=== PATIENT | male | born 1970 | race Caucasian/White ===

== ENCOUNTER 2021-04-27 09:50 | Inpatient (IN) | payer BC, OTHER ==
[~2021-04-27] VITALS: Ht 177.8 cm; Wt 143.3 kg
[2021-04-27 11:03] LABS: Basophils # (auto) 0.1 10 ^3/uL (0-0.2); Eosinophils # (auto) 0.1 10 ^3/uL (0-0.8); Hematocrit 48.2 % (41.0-53.0); Mean Corpuscular Volume 72.5 fL (80.0-100.0); White Blood Cell 9.4 10^3/uL (4.4-10.8)
[2021-04-27 11:04] LABS: Basophils % (auto) 0.8 % (0.0-2.0); Eosinophils % (auto) 1.1 % (0.0-7.0); Hemoglobin 15.1 g/dL (13.5-17.5); Lymphocytes # (auto) 1.3 10 ^3/uL (0.4-5.4); Lymphocytes % (auto) 14.3 % (10.0-50.0); Mean Corpuscular Hemoglobin 22.8 pg (28.0-32.0); Mean Corpuscular Hgb Conc. 31.4 g/dL (32.0-36.0); Monocytes # (auto) 0.7 10 ^3/uL (0-1.3); Monocytes % (auto) 7.3 % (0.0-12.0); Neutrophils # (auto) 7.1 10 ^3/uL (1.6-8.6); Neutrophils % (auto) 76.5 % (37.0-80.0); Red Blood Cells 6.66 10^6/uL (4.5-5.90)
[2021-04-27 11:25] LABS: Albumin 3.2 g/dL (3.4-5.0); Calcium 8.4 mg/dL (8.5-10.1)
[2021-04-27 11:31] LABS: BUN/Creatinine Ratio 10.7; Bilirubin, Total 0.7 mg/dL (0.2-1.0); Total Protein 7.1 g/dL (6.4-8.2)
[2021-04-27] MEDS ORDERED: DOCUSATE SOD 100 MG CAP PO PRN (11:45)
[2021-04-27] MEDS ORDERED: ACETAMINOPHEN 325 MG TAB PO PRN (11:45)
[2021-04-27] MEDS ORDERED: NITROGLYCERIN 0.4 MG SL TAB SL PRN (11:45)
[2021-04-27] MEDS ORDERED: TEMAZEPAM 15 MG CAP PO PRN (11:45)
[2021-04-27] MEDS ORDERED: MORPHINE SULFATE INJECTION 2 MG/ML SYRG IV PRN ×2 (11:45)
[2021-04-27] MEDS ORDERED: ONDANSETRON HCL 4 MG/2 ML VIAL IV PRN (11:45)
[2021-04-27] MEDS ORDERED: HEPARIN DRIP/D5W 100UNITS/ML 250 ML IV SCH (11:45)
[2021-04-27] MEDS ORDERED: HYDROcodone-ACET 5/325MG TAB PO PRN (11:45)
[2021-04-27 12:36] LABS: INR 1.07 (0.9-1.15); Partial Thromboplastin Time 29.3 sec (23.6-33.0)
[2021-04-27] MEDS: SODIUM CHLOR 0.9% PF (SALINE LOCK) 10ML VIAL/SYR IV SCH ×2 (13:44→21:27)
[2021-04-27 15:25] VITALS: BP 143/81
[2021-04-27] MEDS: ATORVASTATIN 20 MG TAB PO SCH (18:20)
[2021-04-27] MEDS: SODIUM CHLORIDE 0.9% 1,000 ML IV SCH (18:45)
[2021-04-27 19:18] LABS: INR 1.06 (0.9-1.15); Partial Thromboplastin Time 31.6 sec (23.6-33.0)
[2021-04-27] MEDS ORDERED: HEPARIN SODIUM (PORCINE) 5000 UNITS/ML 1ML VIAL SC ONE (20:00)
[2021-04-27 22:00] VITALS: BP_SYST 115; BP_SYST 150; BP_DIAS 77; BP_DIAS 89
[2021-04-28] VITALS (14 sets, daily range): BP systolic 111–140; BP diastolic 70–102
[2021-04-28 01:50] LABS: INR 1.06 (0.9-1.15); Partial Thromboplastin Time 38.2 sec (23.6-33.0)
[2021-04-28] MEDS: SODIUM CHLOR 0.9% PF (SALINE LOCK) 10ML VIAL/SYR IV SCH ×3 (06:00→21:39)
[2021-04-28] MEDS: SODIUM CHLORIDE 0.9% 1,000 ML IV SCH ×2 (06:02→21:39)
[2021-04-28 06:48] LABS: Basophils # (auto) 0.1 10 ^3/uL (0-0.2); Eosinophils # (auto) 0.2 10 ^3/uL (0-0.8); Lymphocytes # (auto) 1.4 10 ^3/uL (0.4-5.4); Mean Corpuscular Volume 72.8 fL (80.0-100.0); Nucleated Red Blood Cells % 0.2 %
[2021-04-28 06:51] LABS: Basophils % (auto) 0.7 % (0.0-2.0); Eosinophils % (auto) 2.6 % (0.0-7.0); Hematocrit 47.8 % (41.0-53.0); Hemoglobin 15.5 g/dL (13.5-17.5); Lymphocytes % (auto) 15.8 % (10.0-50.0); Mean Corpuscular Hemoglobin 23.7 pg (28.0-32.0); Mean Corpuscular Hgb Conc. 32.5 g/dL (32.0-36.0); Monocytes % (auto) 11.2 % (0.0-12.0); Neutrophils # (auto) 6.2 10 ^3/uL (1.6-8.6); Neutrophils % (auto) 69.7 % (37.0-80.0); Red Blood Cells 6.56 10^6/uL (4.5-5.90); Red Cell Distribution Width 19.2 % (11.8-14.3); White Blood Cell 8.9 10^3/uL (4.4-10.8)
[2021-04-28 06:56] LABS: INR 1.1 (0.9-1.15); Partial Thromboplastin Time 39.3 sec (23.6-33.0)
[2021-04-28 07:10] LABS: Cholesterol 160 mg/dL (< 200); HDL Cholesterol 43 mg/dL (40-59); LDL Cholesterol 104 mg/dL (< 100); Triglycerides 97 mg/dL (< 150)
[2021-04-28] MEDS ORDERED: NITROGLYCERIN 5MG/ML 10ML VIAL IV ONE (08:14)
[2021-04-28] MEDS ORDERED: HEPARIN SODIUM (PORCINE) 5000 UNITS/ML 1ML VIAL ONE (08:14)
[2021-04-28] MEDS ORDERED: VERAPAMIL 2.5MG/ML INJ 2ML VIAL IV ONE (08:14)
[2021-04-28] MEDS ORDERED: ANGIOMAX 250 MG VIAL IV ONE ×2 (08:14→10:05)
[2021-04-28] MEDS ORDERED: SODIUM CHL 0.9% 100 ML ONE (08:15)
[2021-04-28] MEDS ORDERED: MIDAZOLAM HCL 2MG/2ML 2ml VIAL (1mg/ml) ONE (08:15)
[2021-04-28] MEDS ORDERED: LIDOCAINE 2%HCL (LOCAL ANESTH.) INJ 20ML MDV ONE (08:15)
[2021-04-28] MEDS ORDERED: IODIXANOL 320MG/ML 100ML BTL IV ONE (08:15)
[2021-04-28] MEDS ORDERED: fentaNYL CITRATE 100 MCG/2 ML VL ONE (08:15)
[2021-04-28] MEDS ORDERED: IOHEXOL 350 MG/ML 100ML IJ ONE ×4 (09:52→10:47)
[2021-04-28] MEDS ORDERED: ASPirin 81 mg TAB PO SCH (10:00)
[2021-04-28] MEDS ORDERED: SODIUM CHL 0.9% 50 ML ONE (10:05)
[2021-04-28] MEDS ORDERED: EPINEPHrine HCL 1 MG/10 ML SYRG ONE (10:17)
[2021-04-28] MEDS ORDERED: ATROPINE SULF 1 MG/10ml SYR ONE (10:17)
[2021-04-28] MEDS ORDERED: TICAGRELOR 90 MG TAB ONE (10:52)
[2021-04-28] MEDS ORDERED: ASPirin 325 MG TAB ONE (10:53)
[2021-04-28] MEDS: ATORVASTATIN 20 MG TAB PO SCH (17:51)
[2021-04-28] MEDS: TICAGRELOR 90 MG TAB PO SCH (21:34)
[2021-04-28] MEDS ORDERED: TICAGRELOR 90 MG TAB PO SCH (22:00)
[2021-04-29 05:00] VITALS: BP 114/85
[2021-04-29] MEDS: SODIUM CHLOR 0.9% PF (SALINE LOCK) 10ML VIAL/SYR IV SCH (05:38)
[2021-04-29 06:15] LABS: Calcium 8.5 mg/dL (8.5-10.1); Potassium 4.8 mmol/L (3.5-5.1)
[2021-04-29 06:17] LABS: BUN/Creatinine Ratio 9.6
[2021-04-29 09:05] VITALS: BP 124/87
[2021-04-29] MEDS: TICAGRELOR 90 MG TAB PO SCH (09:15)
[2021-04-29] MEDS ORDERED: ASPirin-EC 81 mg tab PO SCH (10:00)
[2021-04-29] MEDS ORDERED: ROSU40TA PO (11:11)
[2021-04-29] MEDS ORDERED: TICA90TA PO (11:11)
[2021-04-29] MEDS ORDERED: ASPI-543 PO (11:11)
[2021-04-29] MEDS ORDERED: LOSA-69 PO (11:11)
[2021-04-29] MEDS: SODIUM CHLORIDE 0.9% 1,000 ML IV SCH (12:21)
== END 2021-04-29 12:48 | disposition home or self-care (01) | DRG 247 ==
LOC: EDBD 09:50 → ER 09:50 → TELE 11:33 → TELE-CENTR 14:30
PROVIDERS: ADMIT Internal Medicine; ATTEND Internal Medicine
PROC: 027034Z Dilation of Coronary Artery, One Artery with Drug-eluting Intraluminal Device, Percutaneous Approach (ICD-10-PCS; principal; 2021-04-28)
PROC: 4A023N7 Measurement of Cardiac Sampling and Pressure, Left Heart, Percutaneous Approach (ICD-10-PCS; 2021-04-28)
PROC: B2111ZZ Fluoroscopy of Multiple Coronary Arteries using Low Osmolar Contrast (ICD-10-PCS; 2021-04-28)
PROC: B2151ZZ Fluoroscopy of Left Heart using Low Osmolar Contrast (ICD-10-PCS; 2021-04-28)
DX: I21.4 Non-ST elevation (NSTEMI) myocardial infarction (principal); Z68.41 Body mass index [BMI] 40.0-44.9, adult; E78.5 Hyperlipidemia, unspecified; I10 Essential (primary) hypertension; E66.9 Obesity, unspecified; I25.10 Atherosclerotic heart disease of native coronary artery without angina pectoris; Z82.49 Family history of ischemic heart disease and other diseases of the circulatory system; Z87.891 Personal history of nicotine dependence; Z20.822 Contact with and (suspected) exposure to COVID-19
CPT/HCPCS: 36415; 71045; 80048; 80053; 80061; 82306; 83036; 83880; 84443; 84484; 85025; 85610; 85730; 86850; 86900; 86901; 87426; 92928; 93005; 93306; 93458; 96365; 96372; 99152; 99153; 99291; C1874; G0378; J2250; J3490; Q9967

== ENCOUNTER 2021-07-14 11:38 | Emergency (ER) | payer BC ==
[~2021-07-14] VITALS: Ht 177.8 cm; Wt 136.1 kg
[~2021-07-14 11:38] MED LIST: ASPI-543 PO; LOSA-69 PO; ROSU40TA PO; TICA90TA PO
[2021-07-14 12:34] LABS: Basophils # (auto) 0.1 10 ^3/uL (0-0.2); Eosinophils # (auto) 0.1 10 ^3/uL (0-0.8); Hematocrit 49.9 % (41.0-53.0); Hemoglobin 16.9 g/dL (13.5-17.5); Mean Corpuscular Hgb Conc. 33.8 g/dL (32.0-36.0); White Blood Cell 9.9 10^3/uL (4.4-10.8)
[2021-07-14 12:36] LABS: Basophils % (auto) 0.7 % (0.0-2.0); Eosinophils % (auto) 1.4 % (0.0-7.0); Lymphocytes # (auto) 1.8 10 ^3/uL (0.4-5.4); Lymphocytes % (auto) 18.8 % (10.0-50.0); Mean Corpuscular Hemoglobin 27.7 pg (28.0-32.0); Monocytes # (auto) 0.8 10 ^3/uL (0-1.3); Monocytes % (auto) 8.6 % (0.0-12.0); Neutrophils % (auto) 70.5 % (37.0-80.0); Nucleated Red Blood Cells % 0.1 %; Red Blood Cells 6.08 10^6/uL (4.5-5.90); Red Cell Distribution Width 23.9 % (11.8-14.3)
[2021-07-14 12:39] LABS: Urine Bacteria NONE SEEN /hpf (None Seen); Urine Blood Negative /uL (Negative); Urine Specific Gravity 1.008 (1.001-1.035); Urine WBC <1 /hpf (0 - 3)
[2021-07-14 12:49] LABS: BUN/Creatinine Ratio 14.9; Calcium 9.6 mg/dL (8.5-10.1); Magnesium 2.4 mg/dL (1.6-2.6); Potassium 4.2 mmol/L (3.5-5.1)
[2021-07-14 12:51] LABS: Bilirubin, Total 0.6 mg/dL (0.2-1.0); Total Protein 7.9 g/dL (6.4-8.2)
[2021-07-14 17:00] VITALS: BP 127/82
== END 2021-07-14 17:03 | disposition home or self-care (01) ==
LOC: ER 11:38
DX: R07.89 Other chest pain (principal); I25.10 Atherosclerotic heart disease of native coronary artery without angina pectoris; I10 Essential (primary) hypertension; E66.9 Obesity, unspecified; I25.2 Old myocardial infarction; E78.5 Hyperlipidemia, unspecified; Z98.61 Coronary angioplasty status
CPT/HCPCS: 36415; 71045; 80053; 81001; 83735; 84484; 85025; 93005

== ENCOUNTER 2025-06-12 08:46 | Inpatient (IN) | payer BC ==
[2025-06-10 11:28] LABS: Hematocrit 47.6 % (41.0-53.0); Hemoglobin 16.4 g/dL (13.5-17.5); Mean Corpuscular Hemoglobin 31.0 pg (28.0-32.0); Mean Corpuscular Volume 90.0 fL (80.0-100.0); Nucleated Red Blood Cells % 0.2 %
[2025-06-10 11:31] LABS: Urine Protein, UAD Negative (Negative)
[2025-06-10 11:43] LABS: INR 1.03 (0.9-1.15); Partial Thromboplastin Time 28.1 SEC (24.5-34.5); Prothrombin Time 10.9 sec (9.3-11.8)
[2025-06-10 12:07] LABS: Alanine Aminotransferase 19 U/L (7-40); Albumin 4.5 g/dL (3.2-4.8); Alkaline Phosphatase 62 U/L (46-116); Anion Gap 8 (5-15); BUN/Creatinine Ratio 13.0 (10.0-20.0); Bilirubin, Total 0.6 mg/dL (0.2-1.0); Blood Urea Nitrogen 12 mg/dL (9-23); Calcium 9.6 mg/dL (8.7-10.4); Carbon Dioxide 27 mmol/L (20-31); Chloride 105 mmol/L (98-107); Glucose 98 mg/dL (74-106); Potassium 4.8 mmol/L (3.5-5.1); Sodium 140 mmol/L (136-145); Total Protein 7.0 g/dL (5.7-8.2)
[~2025-06-12] VITALS: Ht 177.8 cm; Wt 129.0 kg
[~2025-06-12 08:46] MED LIST changes: -LOSA-69 PO; +LOSA100T25 PO; -ROSU40TA PO; +ROSU40TA81 PO; -TICA90TA PO
[2025-06-12] MEDS: ceFAZolin 2 GM/D5W50ml 50 ML IV ONE (08:55)
[2025-06-12] MEDS: TRANEXAMIC ACID 20 ML ONE (10:32)
--- NOTE | 2025-06-12 11:09 | DVHHP2 ---
Admitting Diagnosis: cervical spinal stenosis History of Present Illness Home Meds Active Scripts Rosuvastatin Calcium (Crestor) 40 Mg Tab, 1 TAB PO HS, #30 TAB 5 Refills Prov:NAKUL JAEGER MD 04/29/21 Aspirin (Aspir-Low) 81 Mg Tab, 81 MG PO DAILY for 30 Days, #30 TAB Prov:NAKUL JAEGER MD 04/29/21 Reported Medications Losartan Potassium & Hydrochlo (Hyzaar) 1 Tab Tab, 1 TAB PO DAILY, TAB 06/10/25 Neck Pain Radiation: Upper extremity Method of Injury/Prior Factors: Other Modifying Factors for Neck Klaus: None Associated Symptoms of Neck Pa: Muscle spasms, Numbness in upper extremi, Numbness in fingers, Tingling in upper extremi, Tingling in fingers, Sensory loss, Motor loss Past Medical History Patient Family History: Cardiac disorder in father G8 FATHER Cardiac disorder in mother G8 MOTHER Review of Systems Constitutional: No symptom reported Ears, Nose, & Throat: No symptom reported Eyes: No symptom reported Pulmonary/Respiratory: No symptom reported Cardiovascular: No symptom reported Gastrointestinal: No symptom reported Genitourinary: No symptom reported Musculoskeletal: Neck pain Skin: No symptom reported Psychiatric: No symptom reported Endocrine: No symptom reported Hemotologic/Lymphatic: No symptom reported H&P Exam Vital Signs Vital Signs Date Time Temp Pulse Resp B/P (MAP) Pulse Ox O2 Delivery O2 Flow Rate FiO2 06/12/25 09:02 97.6 57 20 118/68 (85) 96 97.6 General Appeara: Well developed, Well nourished, Normal Appearance Head Exam: Normal inspection Neck Exam: Normal inspection, Non-tender, Normal alignment Eye Exam: bilateral eye Normal inspection, bilateral eye PERRL, bilateral eye EOMI Ear Exam: bilateral ear Auricle normal, bilateral ear Canal normal, bilateral ear TM normal Nasal Exam: Normal inspection Mouth: Normal Inspection Pulmonary/Respiratory: Normal inspection, Normal breath sounds, Chest non- tender, Lungs clear Cardiovascular/Chest: Normal inspection, Regular rate, Normal Rhythm Abdominal Exam: Normal bowel sounds, Soft, No tenderness, No hepatospenomegaly, No masses Rectal Exam: Deferred Back Exam: Left CVA tenderness, Decreased range of motion, Muscle spasm Pelvic Exam: Not done Male Genital Exam: Not done Shoulder Exam: Soft tissue tenderness Elbow/Forearm Exam: Soft tissue tenderness Wrist Exam: Soft tissue tenderness Hand Exam: Soft tissue tenderness Hip exam: Normal inspection, Non-tender, Normal range of motion Legs: bilateral leg non-tender, bilateral leg normal inspection, bilateral leg normal range of motion, bilateral leg no evidence of injury Knees: bilateral knee non-tender, bilateral knee normal inspection, bilateral knee normal range of motion, bilateral knee no evidence of injury Ankle Exam: bilateral ankle Normal inspection, bilateral ankle Non-tender, bilateral ankle Normal range of motion, bilateral ankle No evidence of injury Foot: bilateral foot non-tender, bilateral foot normal inspection, bilateral foot normal range of motion, bilateral foot no evidence of injury Tendon/ Neuro: Motor deficit, Sensory deficit [employer] Exam: Normal hearing, Normal speech, PERRL Motor/Sensory: Weak motor strength RUE, Weak motor strength LUE Deep Tendon Ref: All intact Neuro/Mental St: Alert, Oriented Appearance: Appropriate appearance, Appropriate insight Eye contact/ Speech: Cooperative, Good eye contact, Normal speech Coordination/Gait: Abnormal gait Lymphatic: Normal inspection Labs/Xrays Labs Test 06/10/25 11:10 Range/Units White Blood Count 6.5 4.4-10.8 10^3/uL Red Blood Count 5.29 4.5-5.90 10^6/uL Hemoglobin 16.4 13.5-17.5 g/dL Hematocrit 47.6 41.0-53.0 % Mean Corpuscular Volume 90.0 80.0-100.0 fL Mean Corpuscular Hemoglobin 31.0 28.0-32.0 pg Mean Corpuscular Hemoglobin Concent 34.4 32.0-36.0 g/dL Red Cell Distribution Width 13.1 11.8-14.3 % Platelet Count 184 140-450 10^3/uL Mean Platelet Volume 8.9 6.9-10.8 fL Neutrophils (%) (Auto) 62.7 37.0-80.0 % Lymphocytes (%) (Auto) 24.3 10.0-50.0 % Monocytes (%) (Auto) 7.7 0.0-12.0 % Eosinophils (%) (Auto) 3.9 0.0-7.0 % Basophils (%) (Auto) 1.4 0.0-2.0 % Neutrophils # (Auto) 4.1 1.6-8.6 10 ^3/uL Lymphocytes # (Auto) 1.6 0.4-5.4 10 ^3/uL Monocytes # (Auto) 0.5 0-1.3 10 ^3/uL Eosinophils # (Auto) 0.2 0-0.8 10 ^3/uL Basophils # (Auto) 0.1 0-0.2 10 ^3/uL Nucleated Red Blood Cells 0.2 % Prothrombin Time 10.9 9.3-11.8 sec Prothrombin Time INR 1.03 0.9-1.15 Activated Partial Thromboplast Time 28.1 24.5-34.5 SEC Urine Color Colorless Yellow Urine Clarity Clear Clear Urine pH 5.0 5.0-9.0 Urine Specific [place] 1.009 1.001-1.035 Urine Protein Negative Negative Urine Ketones Negative Negative Urine Blood Negative Negative /uL Urine Nitrite Negative Negative Urine Bilirubin Negative Negative Urine Urobilinogen Normal Negative mg/dL Urine Leukocyte Esterase Negative Negative /uL Urine RBC <1 0 - 3 /hpf Urine Microscopic WBC 1 0-3 /HPF Urine Squamous Epithelial Cells None seen <5 /hpf Urine Bacteria None seen None Seen /hpf Urine Glucose Normal Normal mg/dL Sodium Level 140 136-145 mmol/L Potassium Level 4.8 3.5-5.1 mmol/L Chloride Level 105 98-107 mmol/L Carbon Dioxide Level 27 20-31 mmol/L Anion Gap 8 5-15 Blood Urea Nitrogen 12 9-23 mg/dL Creatinine 0.92 0.700-1.30 mg/dL Glomerular Filtration Rate Calc 98 >90 mL/min BUN/Creatinine Ratio 13.0 10.0-20.0 Serum Glucose 98 74-106 mg/dL Calcium Level 9.6 8.7-10.4 mg/dL Total Bilirubin 0.6 0.2-1.0 mg/dL Aspartate Amino Transferase (AST) 17 13-40 U/L Alanine Aminotransferase (ALT) 19 7-40 U/L Alkaline Phosphatase 62 46-116 U/L Total Protein 7.0 5.7-8.2 g/dL Albumin 4.5 3.2-4.8 g/dL Assessment/Plan Primary Diagnosis cervical spinal stenosis Plan admit for elective cervical spine surgery Plan discussed with: Patient SETH JORGENSEN MD Jun 12, 2025 11:09
[2025-06-12] MEDS ORDERED: hydrALAZINE HCL 20 MG/ML VL IV PRN (12:15)
[2025-06-12] MEDS ORDERED: METOCLOPRAMIDE HCL 5MG/ml INJ 2ml VIAL IV PRN (12:15)
[2025-06-12] MEDS ORDERED: HYDROmorphone HCL 2 MG/ML VL/or syr IV PRN ×2 (12:15→16:00)
[2025-06-12] MEDS ORDERED: ONDANSETRON HCL 4 MG/2 ML VIAL IV PRN ×3 (12:15→16:00)
[2025-06-12] MEDS: ACETAMINOPHEN IV 1000 MG/100ML (10MG/ML) IV ONE (12:15)
[2025-06-12] MEDS ORDERED: fentaNYL CITRATE 100 MCG/2 ML VL ONE (12:19)
[2025-06-12] MEDS ORDERED: ONDANSETRON HCL 4 MG/2 ML VIAL ONE (12:20)
[2025-06-12] MEDS ORDERED: LIDOCAINE 1% INJ PF 5ML AMP ONE (12:20)
[2025-06-12] MEDS ORDERED: MIDAZOLAM HCL 2MG/2ML 2ml VIAL (1mg/ml) ONE (12:20)
[2025-06-12] MEDS ORDERED: fentaNYL CITRATE 5 ML ONE ×2 (12:20→14:31)
[2025-06-12] MEDS ORDERED: METOCLOPRAMIDE HCL 5MG/ml INJ 2ml VIAL ONE (12:20)
[2025-06-12] MEDS ORDERED: ROCURONIUM 10MG/ML 10ML VIAL IV ONE (12:21)
[2025-06-12] MEDS ORDERED: PROPOFOL 10 MG/ML 20 ML IV ONE ×2 (12:21→12:23)
[2025-06-12] MEDS: LIDOCAINE 4MG/ML IV SOLN 500 ML IV ONE (12:25)
[2025-06-12] MEDS ORDERED: MORPHINE SULFATE INJ 2 MG/ml SYRG IV PRN ×2 (12:45)
[2025-06-12] MEDS: D5W/SOD CHLO 0.9% 1,000 ML IV SCH (12:45)
[2025-06-12] MEDS ORDERED: NITROGLYCERIN 0.4 MG SL TAB SL PRN (12:45)
[2025-06-12] MEDS ORDERED: SODIUM CHLORIDE LOCK 10 ML ONE (13:02)
[2025-06-12] MEDS ORDERED: hydrALAZINE HCL 20 MG/ML VL ONE (13:42)
[2025-06-12] MEDS ORDERED: MORPHINE SULFATE 4 MG/ML SYR/VIAL IV PRN (13:45)
[2025-06-12] MEDS ORDERED: HYDROmorphone HCL 2 MG/ML VL/or syr ONE (13:59)
[2025-06-12] MEDS: CYCLOBENZAPRINE HCL 10 MG TAB PO SCH (14:00)
[2025-06-12] MEDS ORDERED: ceFAZolin 1GM/50ML 50 ML IV SCH (14:00)
[2025-06-12] MEDS ORDERED: SUGAMMADEX 200mg/2ml Vial (100MG/ML) IV ONE (15:13)
[2025-06-12 15:46] VITALS: PULSE 97; RESP 20; O2SAT 96
--- NOTE | 2025-06-12 15:47 | DVHOP2 ---
Operative Report - 2 Report Details Date: 06/12/25 Preop Diagnosis: cervical 5/6 and 6/7 spinal stenosis causing incapacitating neck pain and radiculopathy Postop Diagnosis: same as pre op Surgeon: Eloy Naylor MD Section Leader: Zee Duran NP Anesthesiologist: Beverley Stewart MD Anesthesia: General Consent: The patient was informed of the risks and benefits of the procedure. These include but are not limited to complications of anesthesia, postoperative infection, incomplete relief of symptoms, recurrence of symptoms, damage to blood vessels, nerves and tendons, deep venous thrombosis, pulmonary embolism and possible need for repeat surgery in the future. Name of Procedure Performed see detailed note Procedure Details Procedure Details: Pre Op Diagnosis: Cervical Degenerative Disk Disease and Spinal Stenosis Causing incapacitating neck pain, radiculopathy and progressive neurologic deficit Post Op Diagnosis: Cervical Degenerative Disk Disease and Spinal Stenosis Causing incapacitating neck pain, radiculopathy and progressive neurologic deficit Procedure: Cervical 5 to 6 anterior cervical discectomy with Cervical 5-6 foraminotomies and facetectomies to decompression the spinal canal and Cervical 6 nerve roots Cervical 6 to 7 anterior cervical discectomy with Cervical 6-7 foraminotomies and facetectomies to decompression the spinal canal and Cervical 7 nerve roots Cervical 5/6 artificial disk arthroplasty with MOBI C device Cervical 6/7 artificial disk arthroplasty with MOBI C device Microscope for micro dissection Surgeon: Eloy Naylor MD Anesthesia: General Assist: Zee Druan NP Fluids and EBL: see anesthesia note Procedure Note: The patient was seen in the Pre-anesthesia Care Unit and the site of the incision was initialed by me with a felt tipped marker. All questions by the patient were answered to the satisfaction of the patient and the chart was reviewed. The patient was taken to the operating room and placed supine on the [facility] Flat top table. General anesthesia was induced. Neuromonitoring leads were placed. A rolled towel was placed between the shoulder blades to hyperextend out the chest which will allow better exposure of the cervical spine. Halter traction to 10 pounds was placed. The arms were padded and adducted to the patient's side making sure all pulses in the hands were present. Tape traction was undertaken on the shoulders to give us better radiographic exposure of the distal cervical spine. A gel-pad was placed under the occiput and 5 degrees of extension was placed on the neck without adverse effects to the patient. The anterior neck was prepped and draped. Pre-operative antibiotics were given 30 minutes prior to the start of the procedure. A c-arm fluoroscope was used to stella out the incision site. At this time, a time out was taken per usual protocol. Next an incision was made through the skin with a 15 blade scal pel through the subcutaneous tissue down to the platysma. Self-retainers were placed. The platysma was incised along the longitudinal border with a Metzenbaum scissors. Blunt dissection was made through the deep cervical and pre-tracheal fascia taking care to protect the carotid sheath laterally and the Trachea/esophagus medially. The dissection was carried down to the pre-vert ebral fascia. Any crossing vessels were ligated using a vascular clip or coagulated with a bovie. An esophageal retractor was next used to retract the trachea/esophagus and a bent [address] through the anterior annulus of the cervical disk and a lateral C-arm fluoroscopic image was taken to confirm that we were at the correct level. Next, bovie electrocautery was used to expose the bones cervical 4 and 5and bipolar electrocautery was used to lift up the Longus colli and capitus muscles. Black-Belt Self Retainers were used to retract the Longus colli and capitus muscles bilaterally as well as the trachea/esophagus to the right and the carotid sheath to the left. Smooth thin Black-Belt retractors were placed proximally and distally and a needle was placed again in the anterior annulus of the disk and an image taken to confirm the correct level. At this point, the microscope was wheeled in and an 11 blade scalpel incised the anterior annulus of the cervical cervical 5/6 and 6/7 disks. Next, straight and curved curettes removed the remainder of the disks all the way down to the posterior longitudinal ligament. Carefully, a Kerison number one rongeur incised the posterior longitudinal ligament at the lateral end of the cervical 5/6 and 6/7 disk and using a micro, blunt tip nerve hook to separate the posterior longitudinal ligament from the dura, alternating 1 mm and 2 mm Kerison rongeurs removed the posterior longitudinal ligament. Next, Kerison 1mm and 2 mm rongeurs were alternated to get under the uncinate processes and undercut them to perform foraminotomies and factectomies at cervical 5/6 and 6/7levels to decompress the central canal and cervical 6 and 7 nerve roots. Next the microscope was wheeled away and the c-arm fluoroscope was wheeled into the field and a lateral image was obtained. Increasing size graft trials were used starting at a 5 mm thick size until the proper tension in the disk space and height church obtained. We then placed a MOBI C deviceat cervical 5/6 and then repeated the Process at C6/7. Satisfactory placement was confirmed in the AP and lateral views using a C-arm fluoroscope. Both prostheses were 17mm wide/ 17mm deep / 5mm thick Copious irrigation of the wound with sterile saline and all bleeding was controlled before closure initiated. At this point, a 10 Thai [address] Drain was place deep to the Platysma muscle and the Platysma was approximated with one interrupted 0-Vicryl suture. The subcutaneous tissue was closed with interrupted 2-0 vicryl sutures and the skin was closed with leonardo. Sterile dressings were placed and a cervical collar placed, the patient extubated, transferred to the stretcher and taken to the Recovery Room in unremarkable condition. CPT CODES: [id number] Condition Stable Disposition Still a Patient ELOY NAYLOR MD Jun 12, 2025 15:47
[2025-06-12 17:05] VITALS: BP_SYST 108; BP_SYST 110; BP_DIAS 61; BP_DIAS 69; PULSE 61; PULSE 62; RESP 16; RESP 18; TEMP 97.9; TEMP 98.4; O2SAT 94; O2SAT 95
[2025-06-12 20:00] VITALS: PULSE 71; PULSE 72; RESP 18; O2SAT 96
[2025-06-12] MEDS: HYDROcodone-ACET 10/325MG TAB PO PRN (20:18)
[2025-06-12] MEDS: ceFAZolin 1GM/50ML 50 ML IV SCH (20:18)
[2025-06-12 21:00] VITALS: BP 112/67; PULSE 64; RESP 17; TEMP 97.7; O2SAT 99
[2025-06-12] MEDS: DOCUSATE SOD 100 MG CAP PO SCH (22:53)
[2025-06-13 01:00] VITALS: BP 114/64; PULSE 62; RESP 18; TEMP 97.7; O2SAT 99
[2025-06-13 05:00] VITALS: BP 106/57; PULSE 69; RESP 19; TEMP 98.4; O2SAT 99
[2025-06-13] MEDS: ceFAZolin 1GM/50ML 50 ML IV SCH (05:24)
[2025-06-13 08:00] VITALS: PULSE 70; RESP 20; O2SAT 97
[2025-06-13 08:36] VITALS: BP 123/80; PULSE 70; RESP 20; TEMP 98.2; O2SAT 97
--- NOTE | 2025-06-13 10:25 | DVH ---
C-ARM FLUOROSCOPY: PROCEDURE: ACDF FLUOROSCOPY TIME: 95.5 sec Air Kerma: 63 mgy FINDINGS: Spot intraoperative C arm radiographs demonstrating ACDF. IMPRESSION: Please refer to surgical report for detailed findings.
--- NOTE | 2025-06-13 10:25 | DVH ---
C-ARM FLUOROSCOPY: PROCEDURE: ACDF FLUOROSCOPY TIME: 95.5 sec Air Kerma: 63 mgy FINDINGS: Spot intraoperative C arm radiographs demonstrating ACDF. IMPRESSION: Please refer to surgical report for detailed findings.
--- NOTE | 2025-06-13 10:43 | DVHPN2 ---
Progress Note - Surgical Date Seen: Jun 13, 2025 Post op day Post op day: 1 Subjective Patient reports: No new complaints, Feels better Review of Systems: NEURO:Abnormal (severe neck pain and arm pain) Objective Vital signs Vital Sign Date Time Temp Pulse Resp B/P (MAP) Pulse Ox O2 Delivery O2 Flow Rate FiO2 06/13/25 08:36 98.2 70 20 123/80 (94) 97 98.2 06/12/25 20:00 Room Air* 0 21 Total Intake and Output 06/12/25 06/12/25 06/13/25 15:00 23:00 07:00 Intake Total 200 ml 800 ml Output Total 15 ml 1400 ml Balance 200 ml -15 ml -600 ml Medications Current Medications Medications Dose Ordered Sig/Suraj Route Start Time Stop Time Status Last Admin Dose Admin Dextrose/Sodium Chloride 1,000 ml @ 100 mls/hr Q10H IV 06/12/25 12:45 Ondansetron HCl 4 mg Q4HP PRN IV 06/12/25 12:45 Acetaminophen 650 mg Q6HP PRN PO 06/12/25 12:45 Acetaminophen/ Hydrocodone Bitart 1 tab Q6HP PRN PO 06/12/25 12:45 06/13/25 08:45 1 TAB Morphine Sulfate 1 mg Q4HP PRN IV 06/12/25 12:45 UNV Cyclobenzaprine HCl 10 mg TID PO 06/12/25 14:00 06/13/25 05:25 10 MG Docusate Sodium 100 mg BID PO 06/12/25 22:00 06/12/25 22:53 100 MG Nitroglycerin 0.4 mg Q5MINP PRN SL 06/12/25 12:45 Morphine Sulfate 2 mg Q30M PRN IV 06/12/25 12:45 Morphine Sulfate 1 mg Q4HPRN PRN IV 06/12/25 13:45 Cefazolin Sodium 50 ml @ 100 mls/hr Q8H IV 06/13/25 04:30 06/13/25 05:24 100 MLS/HR Laboratory Laboratory Tests 06/10/25 11:10 Test 06/10/25 11:10 Range/Units Serum Glucose 98 74-106 mg/dL Examination: GENERAL:Normal, HEENT:Normal, NECK:Normal (good ROM), LUNGS:Normal, CVS:Normal, ABDOMEN:Normal, MSK:Normal (ambulating in hallway), SKIN:Normal (left anterior neck wound well apprximated with staple), NEURO:Normal (verbalized great improvment), :Normal Problem List/Assessment/Plan Problems: (1) Acute post-operative pain (2) Muscle spasms of neck Assessment and Plan minimal drain output-drain DC, pt tolerated well up ambulating out in denny verbalized vast improvement in neck and arm pain tolerating meals, pain well controlled patient requesting discharge patient has picked up medications patient has follow up appointment scheduled You may shower and let the water run over your neck wound however you must pat it dry with sterile 4x4s gauze. Please do not use regular household towels. Keep your incision covered when you are out of your house or when you are wearing clothing that rub on your incision. He will also do not want to have a seatbelt rubbing on your incision. If you are at home and you have clothing that does not contact your incision you may leave it open to air. You may have some residual drainage from the drain site for the next 2-3 days which is normal it should be a very light pink or ramila color fluid. If it changes or becomes bright red please call 911. Call with questions Marbin Duran [facility] Orthopaedic Spine Surgery nurse practitioner For Dr Jessica Naylor Office Patient was examined, chart reviewed, labs evaluated, and diagnostic studies and findings analyzed. Case was discussed with Dr. Eloy Naylor who formulated the plan of care. This medical document was created using an electronic medical record system with [employer] dictation system. Although this document has been carefully reviewed, there might still be some phonetic and typographical errors. These areas are purely typographical due to imperfections of the software programs, and do not reflect any compromise in the patient's medical care. Plan discussed with Plan discussed with: Patient, Other Visit Coding Surgery Date of Service if different f: Jun 13, 2025 Billing Provider: VÍCTOR DURAN NP Surgery Visit Codes: NOT BILLABLE VÍCTOR DURAN NP Jun 13, 2025 10:43
[2025-06-13 13:00] VITALS: BP 148/81; PULSE 78; RESP 18; TEMP 98.2; O2SAT 95
[2025-06-13] MEDS: ACETAMINOPHEN 325 MG TAB PO PRN (13:21)
[2025-06-13] MEDS ORDERED: MAGNESIUM SULF 50% 40 MEQ/10 ML VL IV ONE (15:00)
--- NOTE | 2025-06-13 16:18 | DVHDS2 ---
Discharge Summary Date of Admission Jun 12, 2025 at 12:43 Date of Discharge: Jun 13, 2025 Admitting Diagnosis cervical stenosis with neurogenic claudication Wounds: left anterior neck wound well approximated with staple Labs/Diagnostic Data: Laboratory Results Test 06/10/25 11:10 White Blood Count 6.5 10^3/uL (4.4-10.8) Red Blood Count 5.29 10^6/uL (4.5-5.90) Hemoglobin 16.4 g/dL (13.5-17.5) Hematocrit 47.6 % (41.0-53.0) Mean Corpuscular Volume 90.0 fL (80.0-100.0) Mean Corpuscular Hemoglobin 31.0 pg (28.0-32.0) Mean Corpuscular Hemoglobin Concent 34.4 g/dL (32.0-36.0) Red Cell Distribution Width 13.1 % (11.8-14.3) Platelet Count 184 10^3/uL (140-450) Mean Platelet Volume 8.9 fL (6.9-10.8) Neutrophils (%) (Auto) 62.7 % (37.0-80.0) Lymphocytes (%) (Auto) 24.3 % (10.0-50.0) Monocytes (%) (Auto) 7.7 % (0.0-12.0) Eosinophils (%) (Auto) 3.9 % (0.0-7.0) Basophils (%) (Auto) 1.4 % (0.0-2.0) Neutrophils # (Auto) 4.1 10 ^3/uL (1.6-8.6) Lymphocytes # (Auto) 1.6 10 ^3/uL (0.4-5.4) Monocytes # (Auto) 0.5 10 ^3/uL (0-1.3) Eosinophils # (Auto) 0.2 10 ^3/uL (0-0.8) Basophils # (Auto) 0.1 10 ^3/uL (0-0.2) Nucleated Red Blood Cells 0.2 % Prothrombin Time 10.9 sec (9.3-11.8) Prothrombin Time INR 1.03 (0.9-1.15) Activated Partial Thromboplast Time 28.1 SEC (24.5-34.5) Urine Color Colorless (Yellow) Urine Clarity Clear (Clear) Urine pH 5.0 (5.0-9.0) Urine Specific [place] 1.009 (1.001-1.035) Urine Protein Negative (Negative) Urine Ketones Negative (Negative) Urine Blood Negative /uL (Negative) Urine Nitrite Negative (Negative) Urine Bilirubin Negative (Negative) Urine Urobilinogen Normal mg/dL (Negative) Urine Leukocyte Esterase Negative /uL (Negative) Urine RBC <1 /hpf (0 - 3) Urine Microscopic WBC 1 /HPF (0-3) Urine Squamous Epithelial Cells None seen /hpf (<5) Urine Bacteria None seen /hpf (None Seen) Urine Glucose Normal mg/dL (Normal) Sodium Level 140 mmol/L (136-145) Potassium Level 4.8 mmol/L (3.5-5.1) Chloride Level 105 mmol/L (98-107) Carbon Dioxide Level 27 mmol/L (20-31) Anion Gap 8 (5-15) Blood Urea Nitrogen 12 mg/dL (9-23) Creatinine 0.92 mg/dL (0.700-1.30) Glomerular Filtration Rate Calc 98 mL/min (>90) BUN/Creatinine Ratio 13.0 (10.0-20.0) Serum Glucose 98 mg/dL (74-106) Calcium Level 9.6 mg/dL (8.7-10.4) Total Bilirubin 0.6 mg/dL (0.2-1.0) Aspartate Amino Transferase (AST) 17 U/L (13-40) Alanine Aminotransferase (ALT) 19 U/L (7-40) Alkaline Phosphatase 62 U/L (46-116) Total Protein 7.0 g/dL (5.7-8.2) Albumin 4.5 g/dL (3.2-4.8) Other Laboratory Tests 06/10/25 11:10 Brief Hx & Hospital Course: The patient arrived for a elective spine surgery with Dr. NAYLOR. Surgery went as planned with no complications. After a short stay in the PACU patient was admitted to the hospital for postoperative care and pain management over the course of 1 postoperative days the patient was able to tolerate a diet, ambulate independently, the pain has been managed with oral analgesics. The surgical site is well-approximated with sutures, some residual drainage continues from drain insertion sites after removal, however it is manageable with daily wound care and dressing changes. Some improvement to preoperative symptoms of extremities, strength and motion. There is new post operative pain that is localized to the surgical site. The patient will follow-up with Dr. Naylor for wound check and suture check or staple removal. Operations or Procedures cervical disc replacement x2 Condition at Discharge: Good Final Diagnosis/Problems List acute post operative pain accompanied by muscle spasms Discharge Disposition: Home Discharge Instruct/Medications Diet: Regular, See Comment Diet comment: you may resume our regular diet Activity: No Restrictions, As Tolerated Activity comment: continue to move your head and neck slowly until it becomes more comfortable. limit lifting Follow Up/Referral: Call for a appointment, or to change or confirm your appoinment [address] [place] [address], [address], [place] [address] Medications: patient has picked up medications already Scheduled Aspirin (Aspir-Low), 81 MG PO DAILY Losartan Potassium & Hydrochlo (Hyzaar), 1 TAB PO DAILY, (Reported) Rosuvastatin Calcium (Crestor), 1 TAB PO HS 15 Discharge Statement: "Patient was advised to return to the ER or call 911 if any headaches, dizziness, shortness of breath, chest pain, abdominal pain, bleeding, fevers, or worsening of medical condition. Patient was counseled about treatment plan, medications, possible side effects, patientverbalized understanding. All questions were answered to the best of my ability. This discharge took greater then 30 minutes in planning, reviewing documentation, counseling the patient, and discussing with other team members." ASSESSMENT ASSESSMENT Assessment acute post operative pain accompanied by muscle spasms VÍCTOR CHU NP Jun 13, 2025 16:18
[2025-06-13 17:00] VITALS: BP 139/88; PULSE 83; RESP 18; TEMP 98; O2SAT 95
== END 2025-06-13 17:45 | disposition home or self-care (01) | DRG 518 ==
LOC: SUR 08:46 → OVERFLOW 12:43 → TELE-WESTW 17:29
PROVIDERS: ADMIT Internal Medicine; ATTEND Internal Medicine
PROC: 01N10ZZ Release Cervical Nerve, Open Approach (ICD-10-PCS; 2025-06-12)
PROC: 00NW0ZZ Release Cervical Spinal Cord, Open Approach (ICD-10-PCS; 2025-06-12)
PROC: 0RR30JZ Replacement of Cervical Vertebral Disc with Synthetic Substitute, Open Approach (ICD-10-PCS; principal; 2025-06-12 12:29)
DX: M48.02 Spinal stenosis, cervical region (principal); Z82.49 Family history of ischemic heart disease and other diseases of the circulatory system; M50.122 Cervical disc disorder at C5-C6 level with radiculopathy
CPT/HCPCS: 36415; 72040; 76000; 80053; 81001; 85025; 85610; 85730; 86850; 86900; 86901; 97163; G0378; J0694; J1956; J2250; J2405; J2704; J7042